=== PATIENT | female | born 1960 | race Caucasian/White ===

== ENCOUNTER 2019-09-08 08:55 | Outpatient (CLI) | payer MEDICARE, MEDICAID | END 2019-09-08 23:59 | disposition home or self-care (01) | LOC: VAS 08:55 | PROVIDERS: ATTEND Orthopaedic Surgery | DX: R60.0 Localized edema (principal); J45.909 Unspecified asthma, uncomplicated; F17.200 Nicotine dependence, unspecified, uncomplicated | CPT/HCPCS: 93971 ==

== ENCOUNTER 2023-04-06 11:00 | Day surgery (SDC) | payer BC, MEDICAID ==
[~2023-04-06] VITALS: Ht 152.4 cm; Wt 65.0 kg
[2023-04-06] VITALS (9 sets, daily range): BP systolic 104–136; BP diastolic 52–82
[2023-04-06] MEDS ORDERED: normal saline 1,000 ML IV SCH (11:30)
[2023-04-06] MEDS ORDERED: diphenhydrAMINE 25mg capsule PO PRN (11:30)
[2023-04-06] MEDS ORDERED: LORazepam 0.5 MG tablet PO PRN (11:30)
[2023-04-06 11:53] LABS: BASOPHILS # (AUTO) 0.1 X10'3 (0-0.2); BASOPHILS % (AUTO) 1.4 % (0-1); EOSINOPHILS # (AUTO) 0.1 X10'3 (0-0.9); HEMATOCRIT 29.2 % (35.0-45.0); HEMOGLOBIN 9.4 g/dl (12.0-16.0); LYMPHOCYTES # (AUTO) 1.1 X10'3 (1.1-4.8); LYMPHOCYTES % (AUTO) 16.3 % (21-51); MEAN CORPUSCULAR HEMOGLOBIN 24.6 PG (27.0-31.0); MEAN CORPUSCULAR HGB CONC 32.3 g/dL (33.0-36.5); MEAN CORPUSCULAR VOLUME 76.3 FL (78-98); MEAN PLATELET VOLUME 7.7 FL (7.4-10.4); MONOCYTES # (AUTO) 0.7 X10'3 (0-0.9); MONOCYTES % (AUTO) 10.6 % (2-12); NEUTROPHILS # (AUTO) 4.7 X10'3 (1.8-7.7); NEUTROPHILS % (AUTO) 70.7 % (42-75); PLATELET COUNT 289 X10'3 (140-440); RED BLOOD COUNT 3.83 X10'6 (4.20-5.60); RED CELL DISTRIBUTION WIDTH 16.3 % (11.5-14.5); WHITE BLOOD COUNT 6.6 X10'3 (4.5-11.0)
[2023-04-06] MEDS ORDERED: heparin 1,000unit/ml 10ml vial 10 ML ONE (11:53)
[2023-04-06] MEDS ORDERED: nitroGLYCERIN-Tridil 50MG/D5W 250 ML IV ONE (11:53)
[2023-04-06] MEDS ORDERED: iohexol 350MG/ML 100ml bottle IV ONE (11:53)
[2023-04-06] MEDS ORDERED: LIDOcaine 1% (10mg/ml) 2ml vial ONE (11:53)
[2023-04-06] MEDS ORDERED: verapamil 2.5 mg/ml inj IV ONE (11:53)
[2023-04-06] MEDS ORDERED: fentaNYL/PF 50MCG/1 ML 2ML syringe ONE (11:53)
[2023-04-06] MEDS ORDERED: midazolam 1 mg/ML 2ml injection ONE (11:53)
[2023-04-06 12:06] LABS: ALBUMIN 3.5 G/DL (3.4-5.0); ANION GAP 7 (8-16); BLOOD UREA NITROGEN 7 MG/DL (7-18); BUN/CREATININE RATIO 10.4 (10.0-20.0); CALCIUM 8.2 MG/DL (8.5-10.1); CHLORIDE 91 MMOL/L (99-107); CREATININE 0.67 MG/DL (0.40-0.90); GLUCOSE 93 MG/DL (70-104); POTASSIUM 3.4 MMOL/L (3.5-5.1); SODIUM 126 MMOL/L (135-145); TOTAL CARBON DIOXIDE 28.3 MMOL/L (24-32); eGFR 89 ML/MIN
[2023-04-06] MEDS ORDERED: CALC300T4 PO (12:17)
[2023-04-06] MEDS ORDERED: MONT-40 PO (12:17)
[2023-04-06] MEDS ORDERED: DENO60DI SQ (12:17)
[2023-04-06] MEDS ORDERED: FURO20TA4 PO (12:17)
[2023-04-06] MEDS ORDERED: ALBU8HFA PO (12:17)
[2023-04-06] MEDS ORDERED: AMIT100T61 PO (12:17)
[2023-04-06] MEDS ORDERED: NAPR220T67 PO (12:17)
[2023-04-06] MEDS ORDERED: VENL150C58 PO (12:17)
[2023-04-06] MEDS ORDERED: MODA200T48 PO (12:17)
[2023-04-06] MEDS ORDERED: HYDR-3972 PO (12:17)
[2023-04-06] MEDS ORDERED: ROPI2TAB7 PO (12:17)
[2023-04-06] MEDS ORDERED: TRAZ-256 PO (12:17)
[2023-04-06] MEDS ORDERED: CYCL5TAB PO (12:17)
[2023-04-06] MEDS ORDERED: CHOL20002 PO (12:17)
[2023-04-06] MEDS ORDERED: LIDOcaine 1% 30ml preserv. free vial ONE (12:18)
[2023-04-06] MEDS ORDERED: HYDROcodone/acetaminophen 10/325mg tab PO PRN (13:15)
[2023-04-06] MEDS ORDERED: nitroGLYCERIN 0.4mg SUBLingual tab SL PRN (13:15)
[2023-04-06] MEDS ORDERED: HYDROcodone/acetaminophen 5mg/325mg tablet PO PRN (13:15)
[2023-04-06] MEDS ORDERED: ondansetron/PF 4mg/2ml inj IV PRN (13:15)
[2023-04-06] MEDS ORDERED: OXAZEpam 15mg capsule PO PRN (13:15)
[2023-04-06] MEDS ORDERED: proCHLORperazine 10 MG/2 ml inj IV PRN (13:15)
== END 2023-04-06 16:25 | disposition home or self-care (01) ==
LOC: SSTAY O 11:00
PROVIDERS: ATTEND Student in an Organized Health Care Education/Training Program
DX: I34.0 Nonrheumatic mitral (valve) insufficiency (principal); I25.10 Atherosclerotic heart disease of native coronary artery without angina pectoris; J44.9 Chronic obstructive pulmonary disease, unspecified; I10 Essential (primary) hypertension; Z88.5 Allergy status to narcotic agent; Z88.8 Allergy status to other drugs, medicaments and biological substances; Z79.899 Other long term (current) drug therapy; Z79.82 Long term (current) use of aspirin
CPT/HCPCS: 36415; 80048; 85025; 85610; 93005; 93454; 99152; J1644; J2250; J3010; J3490; J7030; Q9967; A6258; C1894